=== PATIENT | male | born 1955 | race Caucasian/White ===

== ENCOUNTER 2017-01-27 00:36 | Emergency (ER) | payer OTHER ==
[~2017-01-27] VITALS: Ht 172.7 cm; Wt 112.7 kg
[~2017-01-27 00:36] MED LIST: ALFUZOSIN HCL10 MG PO; ASPIRIN BUFFER325 MG PO; Aspirin PO; CRESTOR40 MG PO; FISH OIL 1,0001 EAC7 PO; FISH OIL CONC1 EACH PO; FOLIC ACID PO; FOLIC ACID0.8 MG PO; GLYBURIDE-METF1 EAC1 PO; HYDROCHLOROTHIA50 MG PO; IMDUR30 MG PO; LISINOPRIL20 MG PO; METOPROLOL SUCC25 MG PO; NIACIN 500 MG1 EACH PO; PLAVIX75 MG PO; RYZOLT200 MG PO; SEROQUEL; SEROQUEL100 MG PO; TOPROL XL50 MG PO; TRAMADOL; TRAMADOL HCL50 MG PO; XANAX; XANAX0.5 MG PO; XANAX1 MG PO; ZANTAC150 MG PO
[2017-01-27] MEDS ORDERED: METFORMIN HCL500 MG PO (02:21)
[2017-01-27] MEDS ORDERED: PLAVIX75 MG PO (02:22)
[2017-01-27] MEDS ORDERED: MICRONASE5 MG PO (02:22)
[2017-01-27] MEDS ORDERED: CRESTOR40 MG PO (02:23)
[2017-01-27] MEDS ORDERED: FOLIC ACID0.8 MG PO (02:23)
[2017-01-27] MEDS ORDERED: NIACIN500 M1 PO (02:23)
[2017-01-27] MEDS ORDERED: PRINIVIL20 MG PO (02:23)
[2017-01-27] MEDS ORDERED: FISH OIL 1,0001 EAC7 PO (02:24)
[2017-01-27] MEDS ORDERED: LYRICA150 MG PO (02:24)
[2017-01-27] MEDS ORDERED: HYDROCHLOROTHIA50 MG PO (02:24)
[2017-01-27] MEDS ORDERED: ASPIRIN325 MG PO (02:24)
[2017-01-27 02:39] LABS: BASOPHIL COUNT 0.1 K/uL (0-0.1); EOSINOPHIL (%) 2.4 % (0-5); EOSINOPHIL COUNT 0.3 K/uL (0-0.3); HEMATOCRIT 40.3 % (38.0-50.0); IMMATURE GRANULOCYTE (%) 0.5 % (0.0-0.7); IMMATURE GRANULOCYTE COUNT 0.1 K/uL; INSTRUMENT ABS NEUTROPHIL CT 7.4 K/uL; LYMPHOCYTE COUNT 2.7 K/uL (1.0-2.8); MCH 28.8 PG (29.0-34.0); MCHC 32.8 G/DL (30.0-36.0); MCV 87.8 FL (86-99); MEAN PLAT.VOLUME 10.5 uM^3 (9.0-12.4); MONOCYTE (%) 8.9 % (3-12); NEUTROPHIL (%) 64.1 % (45-76); NEUTROPHIL COUNT 7.4 K/uL (1.8-6.4); PLATELET COUNT 238 K/uL (156-360); RBC DIS.WIDTH-CV 12.6 % (11.8-14.6); RBC DIS.WIDTH-SD 40.7 % (39-53); RED BLOOD COUNT 4.59 M/uL (4.00-5.50); WHITE BLOOD COUNT 11.5 K/uL (4.1-10.2)
[2017-01-27 02:47] LABS: CHLORIDE 103 mEq/L (99-109); POTASSIUM 3.6 mEq/L (3.7-5.4); SODIUM 143 mEq/L (136-147)
[2017-01-27 02:49] LABS: GLUCOSE 86 mg/dL (70-99)
[2017-01-27 02:50] LABS: ANION GAP 10 MEQ/L (2-14)
[2017-01-27 02:52] LABS: GFR ESTIMATE (CALCULATED) > 59 mL/min/
[2017-01-27 02:53] LABS: UREA NITROGEN (BUN) 16 mg/dL (9-23)
[2017-01-27] MEDS ORDERED: CIPRO750 MG PO (03:45)
[2017-01-27 03:52] VITALS: BP 150/86
== END 2017-01-27 03:53 | disposition home or self-care (01) ==
LOC: EME 00:36
PROVIDERS: Emergency Medicine
DX: H60.502 Unspecified acute noninfective otitis externa, left ear (principal); I10 Essential (primary) hypertension; E11.9 Type 2 diabetes mellitus without complications; Z79.4 Long term (current) use of insulin; Z95.5 Presence of coronary angioplasty implant and graft; Z79.02 Long term (current) use of antithrombotics/antiplatelets; Z79.82 Long term (current) use of aspirin
CPT/HCPCS: 70480; 80048; 85025; 99281; 99284; J0692; J7050

== ENCOUNTER 2017-04-29 05:39 | Emergency (ER) | payer OTHER ==
[~2017-04-29] VITALS: Ht 172.7 cm; Wt 109.0 kg
[~2017-04-29 05:39] MED LIST changes: +ASPIRIN325 MG PO; +CIPRO750 MG PO; +LYRICA150 MG PO; +METFORMIN HCL500 MG PO; +MICRONASE5 MG PO; +NIACIN500 M1 PO; +PRINIVIL20 MG PO
[2017-04-29 05:58] LABS: POINT-OF-CARE METER ID UU13113778
[2017-04-29 06:14] LABS: HEMATOCRIT 41.2 % (38.0-50.0); MCH 28.9 PG (29.0-34.0); MCHC 33.5 G/DL (30.0-36.0); MCV 86.2 FL (86-99); MEAN PLAT.VOLUME 10.5 uM^3 (9.0-12.4); PLATELET COUNT 250 K/uL (156-360); RBC DIS.WIDTH-SD 40.3 % (39-53); RED BLOOD COUNT 4.78 M/uL (4.00-5.50); WHITE BLOOD COUNT 10.3 K/uL (4.1-10.2)
[2017-04-29 06:55] LABS: ANION GAP 12 MEQ/L (2-14); CHLORIDE 99 MEQ/L (99-109); POTASSIUM 3.4 MEQ/L (3.7-5.4); SAMPLE HEMOLYSIS CHECK 0; SAMPLE ICTERIC CHECK 0; SAMPLE LIPEMIA CHECK 0; SODIUM 137 MEQ/L (136-147)
[2017-04-29 07:01] LABS: GFR ESTIMATE (CALCULATED) > 59 mL/min/; GLUCOSE 155 mg/dL (70-99); UREA NITROGEN (BUN) 11 mg/dL (9-23)
[2017-04-29] MEDS ORDERED: ZITHROMAX Z-PA250 MG PO (08:08)
[2017-04-29] MEDS ORDERED: ACCU CHEK AVIV MC (08:08)
[2017-04-29 08:20] VITALS: BP 137/92
== END 2017-04-29 08:20 | disposition home or self-care (01) ==
LOC: EME 05:39
DX: J20.9 Acute bronchitis, unspecified (principal); I10 Essential (primary) hypertension; Z95.5 Presence of coronary angioplasty implant and graft; Z79.02 Long term (current) use of antithrombotics/antiplatelets; Z79.82 Long term (current) use of aspirin; Z79.84 Long term (current) use of oral hypoglycemic drugs
CPT/HCPCS: 71020; 80048; 82948; 83880; 85027; 99281; 99284

== ENCOUNTER 2017-10-13 05:41 | Emergency (ER) | payer OTHER ==
[~2017-10-13] VITALS: Ht 172.7 cm; Wt 106.1 kg
[~2017-10-13 05:41] MED LIST changes: +ACCU CHEK AVIV MC; +ZITHROMAX Z-PA250 MG PO
[2017-10-13 05:43] VITALS: BP 151/97
[2017-10-13 06:04] LABS: HEMATOCRIT 41.4 % (38.0-50.0); HEMOGLOBIN 14.5 G/DL (12.5-16.6); MCV 85.5 FL (86-99); PLATELET COUNT 232 K/uL (156-360); RBC DIS.WIDTH-CV 12.2 % (11.8-14.6); RBC DIS.WIDTH-SD 37.8 % (39-53); RED BLOOD COUNT 4.84 M/uL (4.00-5.50); WHITE BLOOD COUNT 11.4 K/uL (4.1-10.2)
[2017-10-13 06:13] LABS: CHLORIDE 101 mEq/L (99-109); POTASSIUM 3.2 mEq/L (3.7-5.4); SODIUM 136 mEq/L (136-147)
[2017-10-13 06:15] LABS: GLUCOSE 92 mg/dL (70-99)
[2017-10-13 06:19] LABS: CREATININE 1.1 mg/dL (0.6-1.3); GFR ESTIMATE (CALCULATED) > 59 mL/min/ (58.99-99999)
[2017-10-13 06:20] LABS: UREA NITROGEN (BUN) 16 mg/dL (9-23)
== END 2017-10-13 06:37 | disposition left against medical advice (07) ==
LOC: EME 05:41
DX: J34.89 Other specified disorders of nose and nasal sinuses (principal); R05 Cough; K08.9 Disorder of teeth and supporting structures, unspecified; Z53.21 Procedure and treatment not carried out due to patient leaving prior to being seen by health care provider
CPT/HCPCS: 80048; 85027

== ENCOUNTER 2017-12-13 18:24 | Inpatient (IN) | payer OTHER ==
[2017-12-13] VITALS (7 sets, daily range): BP systolic 73–111; BP diastolic 50–68
[~2017-12-13] VITALS: Ht 177.8 cm; Wt 114.2 kg
[2017-12-13 18:37] LABS: BASOPHIL (%) 0.7 % (0-1); EOSINOPHIL (%) 0.8 % (0-5); EOSINOPHIL COUNT 0.1 K/uL (0-0.3); HEMATOCRIT 48.6 % (38.0-50.0); HEMOGLOBIN 15.4 G/DL (12.5-16.6); IMMATURE GRANULOCYTE (%) 4.9 % (0.0-0.7); LYMPHOCYTE (%) 65.9 % (15-42); LYMPHOCYTE COUNT 3.9 K/uL (1.0-2.8); MCH 29.6 PG (29.0-34.0); MCHC 31.7 G/DL (30.0-36.0); MCV 93.5 FL (86-99); MONOCYTE (%) 3.5 % (3-12); MONOCYTE COUNT 0.2 K/uL (0-0.8); NEUTROPHIL (%) 24.2 % (45-76); NEUTROPHIL COUNT 1.4 K/uL (1.8-6.4); NRBC (%) 0.5 /100 WBC (0-0); PLATELET COUNT 238 K/uL (156-360); RBC DIS.WIDTH-CV 12.3 % (11.8-14.6); RBC DIS.WIDTH-SD 42.3 % (39-53)
[2017-12-13 18:51] LABS: AMYLASE 105 IU/L (1-118); PTT 33.9 SEC (25-37)
[2017-12-13 18:52] LABS: CHLORIDE 99 mEq/L (99-109); POTASSIUM 3.7 mEq/L (3.7-5.4); SODIUM 142 mEq/L (136-147)
[2017-12-13 18:53] LABS: GLUCOSE 227 mg/dL (70-99)
[2017-12-13 18:56] LABS: SERUM ETHYL ALCOHOL 56 mg/dL
[2017-12-13 18:57] LABS: CREATININE 1.6 mg/dL (0.6-1.3); GFR ESTIMATE (CALCULATED) 47 mL/min/ (58.99-99999)
[2017-12-13 18:58] LABS: UREA NITROGEN (BUN) 11 mg/dL (9-23)
[2017-12-13 19:00] LABS: LIPASE 51 U/L (1.0-51.0)
[2017-12-13 19:01] LABS: TROP-I INTERPRETATION NEGATIVE; TROPONIN-I 0.01 ng/mL (0.0-0.30)
[2017-12-13 20:02] LABS: BASE EXCESS -14.8 mEq/L (-3 to +3); BICARBONATE 14.3 mEq/L (22-26); CARBOXY HGB 1.1 % (0-5); DEVICE VENT; METHEMOGLOBIN 0.6 % (0-1.5); PCO2 44 mm Hg (35-45); PO2 109 mm Hg (80-100)
[2017-12-13 20:03] LABS: FI02 100 %; INSPIRATION TIME 0.9 seconds; MECHANICAL RATE 24 resp/min; MODE ACVC+; PEEP 5 CM/H20; TIDAL VOLUME 550 ML; pH 7.12 (7.35-7.45)
[2017-12-13 20:56] LABS: APPEARANCE SL.HAZY ((CLEAR)); BILIRUBIN NEGATIVE; BLOOD MODERATE; COLOR YELLOW ((YELLOW)); GLUCOSE (STRIP) 150; KETONES NEGATIVE; LEUKOCYTES NEGATIVE; NITRITE NEGATIVE; PROTEIN (STRIP) 100; SPECIFIC GRAVITY 1.011 (1.000-1.030); UROBILINOGEN 0.2 MG/DL (0.2-1.0)
[2017-12-13 21:01] LABS: BASE EXCESS -15 mEq/L (-3 to +3); BICARBONATE 12.8 mEq/L (22-26); CARBOXY HGB 0.8 % (0-5); COMMENTS - BLOOD GASES C+; DEVICE VENT; FI02 100 %; MECHANICAL RATE 24 resp/min; METHEMOGLOBIN 0.9 % (0-1.5); MODE ACVC+; PCO2 36 mm Hg (35-45); PO2 78 mm Hg (80-100); SITE A-LINE; TOTAL RESP RATE 24 resp/min
[2017-12-13 21:01] LABS: BACTERIA RARE /HPF; EPITHELIAL CELLS NONE SEEN /HPF; MUCUS TRACE /LPF; UCUL ADDED? YES
[2017-12-13 21:02] LABS: INSPIRATION TIME 0.9 seconds; PEEP 5 CM/H20; TIDAL VOLUME 550 ML; pH 7.16 (7.35-7.45)
[2017-12-13 21:12] LABS: AMPHETAMINE NEGATIVE (500 ng/mL); BARBITURATES NEGATIVE (200 ng/mL); BENZODIAZEPINES NEGATIVE (150 ng/mL); BUPRENORPHINE NEGATIVE (10 ng/mL); COCAINE NEGATIVE (150 ng/mL); METHADONE NEGATIVE (200 ng/mL); METHAMPHETAMINE NEGATIVE (500 ng/mL); OPIATES (MORPHINE) NEGATIVE (100 ng/mL); OXYCODONE PRESUMPTIVE POSITIVE (100 ng/mL); PHENCYCLIDINE NEGATIVE (25 ng/mL); PROPOXYPHENE NEGATIVE (300 ng/mL); THC CANNABINOIDS NEGATIVE (50 ng/mL); TRICYCLIC ANTIDEPRESSANTS NEGATIVE (300 ng/mL)
[2017-12-13 22:18] LABS: BASE EXCESS -11.2 mEq/L (-3 to +3); BICARBONATE 15.5 mEq/L (22-26); CARBOXY HGB 0.9 % (0-5); METHEMOGLOBIN 0.7 % (0-1.5); PCO2 37 mm Hg (35-45); PO2 58 mm Hg (80-100)
[2017-12-13 22:19] LABS: COMMENTS - BLOOD GASES C+; DEVICE VENT; FI02 100 %; MECHANICAL RATE 24 resp/min; MODE ACVC+; SITE A-LINE; TIDAL VOLUME 500 ML; TOTAL RESP RATE 24 resp/min; pH 7.23 (7.35-7.45)
[2017-12-13 22:24] LABS: PEEP 8 CM/H20
[2017-12-13 22:38] LABS: HEMATOCRIT 48.6 % (38.0-50.0); HEMOGLOBIN 16.4 G/DL (12.5-16.6); MCH 29.1 PG (29.0-34.0); MCHC 33.7 G/DL (30.0-36.0); NRBC (%) 0.2 /100 WBC (0-0); PLATELET COUNT 272 K/uL (156-360); RBC DIS.WIDTH-CV 12.2 % (11.8-14.6); RBC DIS.WIDTH-SD 38.6 % (39-53); RED BLOOD COUNT 5.64 M/uL (4.00-5.50); WHITE BLOOD COUNT 14.1 K/uL (4.1-10.2)
[2017-12-13 22:39] LABS: MCV 86.2 FL (86-99)
[2017-12-13 22:43] LABS: CHLORIDE 102 MEQ/L (99-109); CREATININE 1.7 MG/DL (0.6-1.3); GFR ESTIMATE (CALCULATED) 44 mL/min/ (58.99-99999); GLUCOSE 252 mg/dL (70-99); POTASSIUM 4.8 MEQ/L (3.7-5.4); SODIUM 140 MEQ/L (136-147); TRIGLYCERIDES 97 MG/DL (Normal: <150); UREA NITROGEN (BUN) 13 mg/dL (9-23)
[2017-12-13 23:59] LABS: BASE EXCESS -12.1 mEq/L (-3 to +3); BICARBONATE 14.7 mEq/L (22-26); CARBOXY HGB 0.7 % (0-5); METHEMOGLOBIN 0.7 % (0-1.5); PCO2 36 mm Hg (35-45); PO2 50 mm Hg (80-100)
[2017-12-14] LABS: COMMENTS - BLOOD GASES C+; DEVICE VENT; FI02 100 %; INSPIRATION TIME 1 seconds; MECHANICAL RATE 24 resp/min; MODE ACPC; PRESSURE CONTROL VENTILATION 18 CM H20; SITE A-LINE; TOTAL RESP RATE 24 resp/min
[2017-12-14 00:01] LABS: PEEP 12 CM/H20; pH 7.22 (7.35-7.45)
[2017-12-14 01:39] LABS: BASE EXCESS -14.9 mEq/L (-3 to +3); BICARBONATE 13.2 mEq/L (22-26); CARBOXY HGB 0.7 % (0-5); METHEMOGLOBIN 0.8 % (0-1.5); PCO2 38 mm Hg (35-45)
[2017-12-14 01:40] LABS: COMMENTS - BLOOD GASES C+; DEVICE VENT; FI02 100 %; INSPIRATION TIME 1 seconds; MECHANICAL RATE 24 resp/min; MODE ACPC; PEEP 12 CM/H20; PO2 63 mm Hg (80-100); PRESSURE CONTROL VENTILATION 18 CM H20; SITE A-LINE; TOTAL RESP RATE 24 resp/min; pH 7.15 (7.35-7.45)
[2017-12-14 03:31] LABS: BASOPHIL (%) 0.4 % (0-1); BASOPHIL COUNT 0.1 K/uL (0-0.1); EOSINOPHIL (%) 0.2 % (0-5); HEMATOCRIT 50.1 % (38.0-50.0); IMMATURE GRANULOCYTE (%) 0.5 % (0.0-0.7); LYMPHOCYTE (%) 19.3 % (15-42); MCH 29.7 PG (29.0-34.0); MCHC 33.9 G/DL (30.0-36.0); MCV 87.4 FL (86-99); MONOCYTE COUNT 1.2 K/uL (0-0.8); NEUTROPHIL (%) 73.6 % (45-76); NEUTROPHIL COUNT 15.1 K/uL (1.8-6.4); NRBC (%) 0.3 /100 WBC (0-0); PLATELET COUNT 272 K/uL (156-360); RBC DIS.WIDTH-CV 12.5 % (11.8-14.6); RBC DIS.WIDTH-SD 39.5 % (39-53); RED BLOOD COUNT 5.73 M/uL (4.00-5.50); WHITE BLOOD COUNT 20.6 K/uL (4.1-10.2)
[2017-12-14 03:42] LABS: SODIUM 146 mEq/L (136-147)
[2017-12-14 03:43] LABS: MAGNESIUM 1.9 mg/dL (1.3-2.7)
[2017-12-14 03:44] LABS: GLUCOSE 273 mg/dL (70-99)
[2017-12-14 03:47] LABS: PHOSPHORUS 2.5 mg/dL (2.5-4.9)
[2017-12-14 03:48] LABS: CHLORIDE 109 mEq/L (99-109); GFR ESTIMATE (CALCULATED) 36 mL/min/ (58.99-99999); POTASSIUM 3.1 mEq/L (3.7-5.4)
[2017-12-14 03:49] LABS: UREA NITROGEN (BUN) 16 mg/dL (9-23)
[2017-12-14 03:51] LABS: CREATINE KINASE 1301 IU/L (1-294)
[2017-12-14 03:56] LABS: TROP-I INTERPRETATION POSITIVE
[2017-12-14 03:58] LABS: INTER. NORMALIZED RATIO 1.5
[2017-12-14 04:14] LABS: TROPONIN-I 45.32 ng/mL (0.0-0.30)
[2017-12-14 05:00] LABS: PTT 36.6 SEC (25-37)
[2017-12-14 05:27] LABS: BASE EXCESS -14.4 mEq/L (-3 to +3); BICARBONATE 14.6 mEq/L (22-26); CARBOXY HGB 0.5 % (0-5); COMMENTS - BLOOD GASES C+; DEVICE VENT; FI02 100 %; MECHANICAL RATE 24 resp/min; METHEMOGLOBIN 0.9 % (0-1.5); MODE ACPC; PCO2 44 mm Hg (35-45); PO2 59 mm Hg (80-100); PRESSURE CONTROL VENTILATION 18 CM H20; SITE A-LINE
[2017-12-14 05:28] LABS: INSPIRATION TIME 1.25 seconds; PEEP 12 CM/H20; TOTAL RESP RATE 24 resp/min; pH 7.13 (7.35-7.45)
[2017-12-14 08:00] VITALS: BP 89/57
[2017-12-14 10:00] VITALS: BP 57/46
[2017-12-14 10:20] LABS: HEMOGLOBIN A1c (GLYCOHEMOGLOB) 5.7 % (Below 5.7)
[2017-12-14 11:17] LABS: BICARBONATE 16.1 mEq/L (22-26); CARBOXY HGB 0.4 % (0-5); COMMENTS - BLOOD GASES C+ANA; DEVICE VENT; FI02 100 %; MECHANICAL RATE 24 resp/min; METHEMOGLOBIN 0.6 % (0-1.5); MODE ACPC; PCO2 52 mm Hg (35-45); PEEP 12 CM/H20; PO2 50 mm Hg (80-100); PRESSURE CONTROL VENTILATION 18 CM H20; SITE ALINE; TOTAL RESP RATE 24 resp/min
[2017-12-14 12:00] VITALS: BP 80/50
[2017-12-14 12:27] LABS: HEMATOCRIT 52.2 % (38.0-50.0); HEMOGLOBIN 17.3 G/DL (12.5-16.6); MCH 29.4 PG (29.0-34.0); MCHC 33.1 G/DL (30.0-36.0); MCV 88.8 FL (86-99); NRBC (%) 0.9 /100 WBC (0-0); RBC DIS.WIDTH-CV 12.7 % (11.8-14.6); RBC DIS.WIDTH-SD 41.1 % (39-53); RED BLOOD COUNT 5.88 M/uL (4.00-5.50); WHITE BLOOD COUNT 9.1 K/uL (4.1-10.2)
[2017-12-14 12:40] LABS: PTT 36.1 SEC (25-37)
[2017-12-14 13:00] LABS: CHLORIDE 109 MEQ/L (99-109); MAGNESIUM 1.9 mg/dl (1.3-2.7); POTASSIUM 2.8 MEQ/L (3.7-5.4); SODIUM 144 MEQ/L (136-147); UREA NITROGEN (BUN) 19 mg/dL (9-23)
[2017-12-14 13:02] LABS: CREATINE KINASE 1037 IU/L (1-294); CREATININE 2.6 MG/DL (0.6-1.3); GFR ESTIMATE (CALCULATED) 27 mL/min/ (58.99-99999); GLUCOSE 429 mg/dL (70-99); TROP-I INTERPRETATION POSITIVE; TROPONIN-I 47.28 ng/mL (0.0-0.30)
[2017-12-14 13:03] LABS: ABS NEUTROPHIL COUNT 6.6; ANISOCYTOSIS 1+; ATYPICAL LYMPHOCYTE 5.3 %; BAND NEUTROPHILS 27.2 % (0-8.0); EOSINOPHIL ABS CT 0; LYMPHOCYTES 14.9 % (15.0-45.0); METAMYELOCYTES 5.3 %; MICROCYTOSIS 1+; MONOCYTES 1.7 % (0-9.0); NUCLEATED RBC'S 0.9; POIKILOCYTOSIS 1+; SEG.NEUTROPHILS 45.6 % (46.0-76.0)
[2017-12-14 16:00] VITALS: BP 89/62
[2017-12-14 18:09] LABS: HEMATOCRIT 51.4 % (38.0-50.0); HEMOGLOBIN 16.8 G/DL (12.5-16.6); MCHC 32.7 G/DL (30.0-36.0); MCV 88.6 FL (86-99); NRBC (%) 0.9 /100 WBC (0-0); PLATELET COUNT 203 K/uL (156-360); RBC DIS.WIDTH-CV 12.7 % (11.8-14.6); RBC DIS.WIDTH-SD 41.1 % (39-53); WHITE BLOOD COUNT 6.8 K/uL (4.1-10.2)
[2017-12-14 18:17] LABS: INTER. NORMALIZED RATIO 2.2
[2017-12-14 18:20] LABS: PTT 38.8 SEC (25-37)
[2017-12-14 18:49] LABS: ABS NEUTROPHIL COUNT 3.6; ANISOCYTOSIS 1+; ATYPICAL LYMPHOCYTE 8.3 %; BAND NEUTROPHILS 18.3 % (0-8.0); EOSINOPHIL ABS CT 0; HEMATOLOGY COMMENT 1 SN; LYMPHOCYTES 25.7 % (15.0-45.0); METAMYELOCYTES 6.4 %; MICROCYTOSIS 1+; MONOCYTES 6.4 % (0-9.0); NUCLEATED RBC'S 0.9; PLAT.SUFFICIENCY ADEQUATE; POIKILOCYTOSIS 1+; SEG.NEUTROPHILS 34.9 % (46.0-76.0); TEAR DROP CELLS 1+
[2017-12-14 18:51] LABS: TROP-I INTERPRETATION POSITIVE; TROPONIN-I 49.07 ng/mL (0.0-0.30)
[2017-12-14 19:00] VITALS: BP 60/47
[2017-12-14 19:18] LABS: CHLORIDE 100 MEQ/L (99-109); CREATINE KINASE 893 IU/L (1-294); GFR ESTIMATE (CALCULATED) 23 mL/min/ (58.99-99999); MAGNESIUM 1.7 mg/dl (1.3-2.7); POTASSIUM 2.5 MEQ/L (3.7-5.4); SODIUM 140 MEQ/L (136-147); UREA NITROGEN (BUN) 20 mg/dL (9-23)
[2017-12-14 19:24] LABS: GLUCOSE 447 mg/dL (70-99); PHOSPHORUS < 1.0 mg/dL (2.5-4.9)
[2017-12-14 20:00] VITALS: BP 58/47; BP 84/62
[2017-12-15] VITALS: BP 62/45; BP 88/62
[2017-12-15 00:59] LABS: HEMATOCRIT 47.3 % (38.0-50.0); HEMOGLOBIN 16.4 G/DL (12.5-16.6); MCH 29.8 PG (29.0-34.0); MCHC 34.7 G/DL (30.0-36.0); RBC DIS.WIDTH-CV 12.8 % (11.8-14.6); RBC DIS.WIDTH-SD 40.1 % (39-53); WHITE BLOOD COUNT 5.9 K/uL (4.1-10.2)
[2017-12-15 01:12] LABS: INTER. NORMALIZED RATIO 2.6; POTASSIUM 2.9 mEq/L (3.7-5.4); SODIUM 134 mEq/L (136-147)
[2017-12-15 01:14] LABS: PTT 46.2 SEC (25-37)
[2017-12-15 01:15] LABS: CHLORIDE 98 mEq/L (99-109)
[2017-12-15 01:20] LABS: MAGNESIUM 1.4 mg/dL (1.3-2.7)
[2017-12-15 01:24] LABS: PHOSPHORUS 1.8 mg/dL (2.5-4.9)
[2017-12-15 01:25] LABS: UREA NITROGEN (BUN) 22 mg/dL (9-23)
[2017-12-15 01:26] LABS: TROP-I INTERPRETATION POSITIVE
[2017-12-15 01:27] LABS: CREATINE KINASE 867 IU/L (1-294)
[2017-12-15 01:35] LABS: TROPONIN-I 31.93 ng/mL (0.0-0.30)
[2017-12-15 01:36] LABS: CREATININE 3.6 mg/dL (0.6-1.3); GLUCOSE 471 mg/dL (70-99)
[2017-12-15 01:37] LABS: GFR ESTIMATE (CALCULATED) 18 mL/min/ (58.99-99999)
[2017-12-15 02:29] LABS: ANISOCYTOSIS 1+; EOSINOPHIL ABS CT 0.1; PLAT.SUFFICIENCY ADEQUATE; PLATELET COUNT 150 K/uL (156-360); POIKILOCYTOSIS 1+
[2017-12-15 04:01] VITALS: BP 80/50
[2017-12-15 04:30] LABS: BASE EXCESS -10.5 mEq/L (-3 to +3); BICARBONATE 20.6 mEq/L (22-26); CARBOXY HGB 0.2 % (0-5); METHEMOGLOBIN 0.7 % (0-1.5); PCO2 68 mm Hg (35-45)
[2017-12-15 04:31] LABS: COMMENTS - BLOOD GASES C+; DEVICE VENT; FI02 100 %; MECHANICAL RATE 24 resp/min; MODE ACPC; PEEP 10 CM/H20; PO2 30 mm Hg (80-100); PRESSURE CONTROL VENTILATION 22 CM H20; SITE A-LINE; TOTAL RESP RATE 24 resp/min; pH 7.09 (7.35-7.45)
[2017-12-15 06:55] LABS: HEMATOCRIT 45.3 % (38.0-50.0); HEMOGLOBIN 15.2 G/DL (12.5-16.6); MCH 28.8 PG (29.0-34.0); MCHC 33.6 G/DL (30.0-36.0); NRBC (%) 0.9 /100 WBC (0-0); PLATELET COUNT 120 K/uL (156-360); RBC DIS.WIDTH-CV 12.8 % (11.8-14.6); RBC DIS.WIDTH-SD 40.2 % (39-53); RED BLOOD COUNT 5.27 M/uL (4.00-5.50); WHITE BLOOD COUNT 5.5 K/uL (4.1-10.2)
[2017-12-15 06:59] LABS: INTER. NORMALIZED RATIO 3.2
[2017-12-15 07:02] LABS: PTT 50.9 SEC (25-37)
[2017-12-15 07:19] LABS: CHLORIDE 99 MEQ/L (99-109); CREATINE KINASE 603 IU/L (1-294); GLUCOSE 350 mg/dL (70-99); MAGNESIUM 1.9 mg/dl (1.3-2.7); POTASSIUM 3.4 MEQ/L (3.7-5.4); SODIUM 134 MEQ/L (136-147); UREA NITROGEN (BUN) 27 mg/dL (9-23)
[2017-12-15 07:26] LABS: CREATININE 4.6 MG/DL (0.6-1.3); GFR ESTIMATE (CALCULATED) 14 mL/min/ (58.99-99999); PHOSPHORUS 2.4 mg/dL (2.5-4.9)
[2017-12-15 07:30] LABS: TROPONIN-I 29.72 ng/mL (0.0-0.30)
[2017-12-15 07:31] LABS: TROP-I INTERPRETATION POSITIVE
[2017-12-15 08:23] LABS: ABS NEUTROPHIL COUNT 3.5; ATYPICAL LYMPHOCYTE 0.9 %; BAND NEUTROPHILS 28.8 % (0-8.0); EOSINOPHIL ABS CT 0; EOSINOPHILS 0.9 % (0-5.0); LYMPHOCYTES 14.4 % (15.0-45.0); METAMYELOCYTES 16.2 %; MONOCYTES 3.6 % (0-9.0); MYELOCYTES 0.9 %; NUCLEATED RBC'S 1.8; PLAT.SUFFICIENCY DECREASED; POIKILOCYTOSIS 1+; SEG.NEUTROPHILS 34.3 % (46.0-76.0); TOX.VACUOLIZATION 1+; TOXIC GRANULATION 2+
[2017-12-15 11:35] LABS: COMMENTS - BLOOD GASES C+; DEVICE VENT; FI02 100 %; MECHANICAL RATE 21 resp/min; MODE ACPC; PEEP 10 CM/H20; PRES. SUPPORT 28 CM/H2O; SITE ARTERIAL LINE; TOTAL RESP RATE 21 resp/min
[2017-12-15 11:36] LABS: BICARBONATE 17.6 mEq/L (22-26); CARBOXY HGB 0 % (0-5); METHEMOGLOBIN 0.8 % (0-1.5); O2 SATURATION (CALCULATED) 75.7 % (95-99); PCO2 54 mm Hg (35-45); PO2 36 mm Hg (80-100)
[2017-12-15 11:37] LABS: pH 7.12 (7.35-7.45)
[2017-12-15 12:00] VITALS: BP 74/37
[2017-12-15 12:06] LABS: INTER. NORMALIZED RATIO 4.1
[2017-12-15 12:09] LABS: PTT 45.7 SEC (25-37)
[2017-12-15 12:15] LABS: HEMATOCRIT 42.8 % (38.0-50.0); HEMOGLOBIN 14.3 G/DL (12.5-16.6); MCH 29.4 PG (29.0-34.0); MCHC 33.4 G/DL (30.0-36.0); MCV 87.9 FL (86-99); NRBC (%) 1.3 /100 WBC (0-0); PLATELET COUNT 102 K/uL (156-360); RBC DIS.WIDTH-CV 13.1 % (11.8-14.6); RBC DIS.WIDTH-SD 42.4 % (39-53); RED BLOOD COUNT 4.87 M/uL (4.00-5.50); WHITE BLOOD COUNT 5.6 K/uL (4.1-10.2)
[2017-12-15 12:43] LABS: ABS NEUTROPHIL COUNT 3.4; ANISOCYTOSIS 1+; BAND NEUTROPHILS 33.3 % (0-8.0); EOSINOPHIL ABS CT 0; LYMPHOCYTES 19.3 % (15.0-45.0); MONOCYTES 5.3 % (0-9.0); PLAT.SUFFICIENCY DECREASED; POIKILOCYTOSIS 2+; SEG.NEUTROPHILS 28.1 % (46.0-76.0); TEAR DROP CELLS 2+; TOX.VACUOLIZATION 1+
[2017-12-15 12:45] LABS: TROP-I INTERPRETATION POSITIVE; TROPONIN-I 29.76 ng/mL (0.0-0.30)
[2017-12-15 14:02] LABS: CHLORIDE 97 MEQ/L (99-109); CREATINE KINASE 838 IU/L (1-294); CREATININE 5.2 MG/DL (0.6-1.3); GFR ESTIMATE (CALCULATED) 12 mL/min/ (58.99-99999); GLUCOSE 307 mg/dL (70-99); MAGNESIUM 1.5 mg/dl (1.3-2.7); PHOSPHORUS 5.9 mg/dL (2.5-4.9); SODIUM 136 MEQ/L (136-147); UREA NITROGEN (BUN) 26 mg/dL (9-23)
== END 2017-12-15 17:55 | DRG 286 ==
LOC: EME 18:24 → ENRESERV 18:44 → CATH 19:17 → ENRESERV 19:22 → 4WEST 20:14 → 2SOUTH 20:14 → 4WEST 20:14
PROVIDERS: Emergency Medicine; Internal Medicine Cardiovascular Disease; Surgery
DX: I46.9 Cardiac arrest, cause unspecified (principal); J96.01 Acute respiratory failure with hypoxia; J96.02 Acute respiratory failure with hypercapnia; N17.9 Acute kidney failure, unspecified; R57.8 Other shock; E87.2 Acidosis; G93.1 Anoxic brain damage, not elsewhere classified; R40.2430 Glasgow coma scale score 3-8, unspecified time; I25.82 Chronic total occlusion of coronary artery; E11.9 Type 2 diabetes mellitus without complications; E78.5 Hyperlipidemia, unspecified; I25.10 Atherosclerotic heart disease of native coronary artery without angina pectoris; I47.2 Ventricular tachycardia; I48.91 Unspecified atrial fibrillation; K21.9 Gastro-esophageal reflux disease without esophagitis; I10 Essential (primary) hypertension; Z86.74 Personal history of sudden cardiac arrest; I25.2 Old myocardial infarction; Z95.5 Presence of coronary angioplasty implant and graft; Z79.82 Long term (current) use of aspirin; Z79.02 Long term (current) use of antithrombotics/antiplatelets; Z87.442 Personal history of urinary calculi; Z79.84 Long term (current) use of oral hypoglycemic drugs
CPT/HCPCS: 36600; 71045; 80048; 80048 91; 81003; 82150; 82330; 82550 91; 82803; 82948; 83036; 83605; 83690; 83735; 84100; 84478; 84484; 85025; 85025 91; 85027; 85347; 85610; 85730; 86850; 86900; 86901; 87040; 87070; 87086; 87205; 87641; 93005; 93306; 94002; 94003; 94640; 94640 76; 95819; 99202; 99281; 99285; C1750; C1751; C1769; C1887; G0480; J0171; J0610; J1265; J1644; J1815; J2250; J2543; J3010; J3475; J3480; J7030; J7040; J7050; J7070; S0028